=== PATIENT | male | born 1995 | race Caucasian/White ===

== ENCOUNTER 2020-10-08 15:30 | Emergency (ER) | payer OTHER ==
[~2020-10-08] VITALS: Ht 157.4 cm; Wt 59.0 kg
[2020-10-08] MEDS ORDERED: TYLENOL325 M1 PO (16:25)
[2020-10-08] MEDS ORDERED: NAPROSYN500 MG PO (16:25)
== END 2020-10-08 16:53 | disposition home or self-care (01) ==
LOC: ED 15:30
DX: S42.001A Fracture of unspecified part of right clavicle, initial encounter for closed fracture (principal); Z91.030 Bee allergy status; X58.XXXA Exposure to other specified factors, initial encounter; Y93.89 Activity, other specified; Y92.89 Other specified places as the place of occurrence of the external cause; Y99.8 Other external cause status

== ENCOUNTER → 2020-11-07 | Outpatient (CLI) | payer OTHER ==
[~2020-11-07] MED LIST: NAPROSYN500 MG PO; TYLENOL325 M1 PO
== END | disposition home or self-care (01) ==
LOC: ORTHO 00:20
PROVIDERS: ATTEND Orthopaedic Surgery
DX: S42.021D Displaced fracture of shaft of right clavicle, subsequent encounter for fracture with routine healing (principal); X58.XXXD Exposure to other specified factors, subsequent encounter